=== PATIENT | female | born 1985 | race Asian ===

== ENCOUNTER 2024-01-03 15:00 | Outpatient (CLI) | payer OTHER | END 2024-01-03 15:01 | disposition home or self-care (01) | LOC: BICMAMMO 15:00 | PROVIDERS: ATTEND Family Medicine | DX: Z12.31 Encounter for screening mammogram for malignant neoplasm of breast (principal); E04.1 Nontoxic single thyroid nodule | CPT/HCPCS: 76536; 77063; 77067 ==

== ENCOUNTER 2025-04-23 14:22 | Outpatient (CLI) | payer OTHER | END 2025-04-23 14:23 | disposition home or self-care (01) | LOC: BICMAMMO 14:22 | PROVIDERS: ATTEND Family Medicine | DX: Z12.31 Encounter for screening mammogram for malignant neoplasm of breast (principal) | CPT/HCPCS: 77063; 77067 ==